=== PATIENT | female | born 1990 | race Caucasian/White ===

== ENCOUNTER → 2021-07-05 14:28 | Observation (INO) ==
[2021-07-05 10:48] LABS: Basophils % 0.4 %; Eosinophils # 0.1 K/mcL (0.0-0.6); Eosinophils % 1.1 %; Hematocrit 36.5 % (35.3-44.9); Hemoglobin 12.2 g/dL (11.5-15.4); Immature Granulocytes % 0.4 % (0-4); Lymphocytes # 2.4 K/mcL (0.6-4.6); Lymphocytes % 23.1 %; Mean Corpuscular HGB Conc 33.4 g/dL (31.6-35.5); Mean Corpuscular Hemoglobin 28.8 pg (28.0-33.3); Mean Corpuscular Volume 86.3 fL (83.0-100.0); Mean Platelet Volume 9.1 fL (9.4-12.4); Monocytes # 0.4 K/mcL (0.0-1.3); Monocytes % 3.8 %; Neutrophils # 7.5 K/mcL (1.6-8.9); Platelet Count 364 K/mcL (140-400); Red Blood Count 4.23 M/mcL (3.82-4.97); Segmented Neutrophils % 71.2 %; White Blood Count 10.5 K/mcL (4.3-11.1)
[2021-07-05 14:26] VITALS: BP 111/65; PULSE 92; TEMP 98.4; O2SAT 97
[~2021-07-05 14:28] MED LIST: *HR* OxyCODONE Immed Rel 5 MG TABLET PO PRN; Clindamycin 900 MG/50 ML 900 MG/50 ML IV.SOLN IVPB SCH; Methylergonovine 0.2 MG/ML AMPUL IM ONE; Ondansetron 4 MG/2 ML VIAL IVP PRN; Ringers Solution, Lactated 1,000 ML IVC SCH; cefOXitin 2,000 MG in 0.9 % Sodium Chloride 20 ML IVP ONE
== END | disposition home or self-care (01) ==
LOC: 1NENULAB
PROVIDERS: ADMIT Obstetrics & Gynecology; ATTEND Obstetrics & Gynecology